=== PATIENT | female | born 1985 | race Caucasian/White ===

== ENCOUNTER 2016-12-08 00:03 | Emergency (ER) | payer MEDICARE, MEDICAID ==
[~2016-12-08] VITALS: Ht 149.9 cm; Wt 49.0 kg
[~2016-12-08 00:03] MED LIST: DOXY40CP IJ; OXYC-302 PO; PRED5TAB PO; VENL37.57 PO
[2016-12-08] MEDS ORDERED: PHENAZOPYRIDINE 200 MG TABLET PO ONE (00:30)
[2016-12-08] MEDS ORDERED: PHENAZOPYRIDINE 200 MG TABLET ONE (00:32)
[2016-12-08 01:21] LABS: HCG UR OBC PASS
[2016-12-08 01:29] LABS: ICTOTEST NEGATIVE
[2016-12-08 01:49] VITALS: BP 102/72
== END 2016-12-08 01:51 | disposition home or self-care (01) ==
LOC: ED 01:20
DX: N30.00 Acute cystitis without hematuria (principal); J45.909 Unspecified asthma, uncomplicated; Z90.49 Acquired absence of other specified parts of digestive tract
CPT/HCPCS: 81001; 81025; 87086; 99284

== ENCOUNTER 2017-08-07 01:58 | Inpatient (IN) | payer MEDICARE, MEDICAID ==
[~2017-08-07] VITALS: Ht 149.9 cm; Wt 59.1 kg
[2017-08-07] MEDS ORDERED: FAMOTIDINE 20 MG/2 ML ONE (02:18)
[2017-08-07] MEDS ORDERED: ONDANSETRON 2MG/ML, 2ML ONE (02:27)
[2017-08-07] MEDS ORDERED: SODIUM CHLORIDE 0.9% 1,000ML IVBOLUS ONE ×2 (02:30→04:30)
[2017-08-07] MEDS ORDERED: ONDANSETRON 2MG/ML, 2ML IVPush ONE (02:30)
[2017-08-07 02:40] LABS: HEMATOCRIT 38.7 % (34.6-47.8); HEMOGLOBIN 12.6 g/dL (11.7-16.4); WHITE BLOOD COUNT 8.8 x10^3/uL (3.4-10)
[2017-08-07 02:51] LABS: ASPARTATE AMINO TRANSFERASE 21 U/L (15-37); BLOOD UREA NITROGEN 7 mg/dL (7-18)
[2017-08-07] MEDS ORDERED: OMNIPAQUE 350 MG/ML, 100ML BOTTLE ONE (03:35)
[2017-08-07 04:54] LABS: DAU SCREEN DISCLAIMER
[2017-08-07] MEDS ORDERED: PROMETHAZINE 25 MG/ML, 1ML ONE (04:59)
[2017-08-07] MEDS ORDERED: PROMETHAZINE 25 MG/ML, 1ML IM ONE (05:00)
[2017-08-07] MEDS ORDERED: LORazepam 2 MG/ML, 1ML IVPush ONE (05:30)
[2017-08-07] MEDS ORDERED: SODIUM CHLORIDE 0.9% 1,000 ML IV SCH (08:04)
[2017-08-07] MEDS ORDERED: TEMAZEPAM 15 MG CAPSULE PO PRN (08:30)
[2017-08-07] MEDS ORDERED: ONDANSETRON 2MG/ML, 2ML IVPush PRN (08:30)
[2017-08-07] MEDS ORDERED: ENOXAPARIN 40 MG/0.4 ML SQ SCH (08:30)
[2017-08-07] MEDS ORDERED: LORazepam 2 MG/ML, 1ML IVPush PRN (08:30)
[2017-08-07 08:42] VITALS: BP 140/43
[2017-08-07 13:36] VITALS: BP 122/74
[2017-08-07 13:40] VITALS: BP 168/94
[2017-08-07 14:20] VITALS: BP 108/66
[2017-08-07] MEDS ORDERED: IBUPROFEN 200 MG TABLET PO PRN (18:00)
[2017-08-07 18:15] VITALS: BP 100/64
== END 2017-08-07 18:31 | disposition home or self-care (01) | DRG 392 ==
LOC: ED 02:35 → EDIP 06:19 → 4NOR 07:00
PROVIDERS: ADMIT Internal Medicine; ATTEND Internal Medicine
DX: A09 Infectious gastroenteritis and colitis, unspecified (principal); A08.4 Viral intestinal infection, unspecified; E86.0 Dehydration; R00.0 Tachycardia, unspecified; J45.909 Unspecified asthma, uncomplicated; M08.00 Unspecified juvenile rheumatoid arthritis of unspecified site; Z53.21 Procedure and treatment not carried out due to patient leaving prior to being seen by health care provider; Z90.49 Acquired absence of other specified parts of digestive tract; Z88.6 Allergy status to analgesic agent; Z88.1 Allergy status to other antibiotic agents; Z88.0 Allergy status to penicillin; Z88.2 Allergy status to sulfonamides
CPT/HCPCS: 36415; 74177; 80053; 80307; 81001; 83690; 84703; 85025; 87086; 87324; 89055; 93005; 96361; 96372; 96374; J1650; J2405; J2550; Q9967; G0479; J7030

== ENCOUNTER 2017-08-23 19:41 | Emergency (ER) | payer MEDICAID, MEDICARE ==
[~2017-08-23] VITALS: Ht 149.9 cm; Wt 60.0 kg
[2017-08-23] MEDS ORDERED: SODIUM CHLORIDE 0.9% 1,000ML IVBOLUS ONE (20:30)
[2017-08-23] MEDS ORDERED: ONDANSETRON 2MG/ML, 2ML IVPush ONE (20:30)
[2017-08-23] MEDS ORDERED: SODIUM CHLORIDE FLUSH 10ML SYR IVF ONE (20:30)
[2017-08-23 20:42] LABS: HEMATOCRIT 40.6 % (34.6-47.8); HEMOGLOBIN 13.3 g/dL (11.7-16.4); WHITE BLOOD COUNT 6.5 x10^3/uL (3.4-10)
[2017-08-23 20:54] LABS: BLOOD UREA NITROGEN 7 mg/dL (7-18)
[2017-08-23 20:59] LABS: ASPARTATE AMINO TRANSFERASE 13 U/L (15-37)
[2017-08-23] MEDS ORDERED: LORazepam 2 MG/ML, 1ML IM ONE (23:00)
[2017-08-23 23:08] VITALS: BP 122/72
== END 2017-08-23 23:10 | disposition home or self-care (01) ==
LOC: ED 20:45
DX: A09 Infectious gastroenteritis and colitis, unspecified (principal); N30.00 Acute cystitis without hematuria; K62.89 Other specified diseases of anus and rectum; K62.5 Hemorrhage of anus and rectum; Z90.49 Acquired absence of other specified parts of digestive tract
CPT/HCPCS: 36415; 80053; 81001; 83690; 84703; 85025; 87086; 99284

== ENCOUNTER 2017-12-16 20:21 | Emergency (ER) | payer MEDICARE, MEDICAID ==
[~2017-12-16] VITALS: Ht 149.9 cm; Wt 59.0 kg
[2017-12-16 20:28] VITALS: BP 114/76
[2017-12-16] MEDS ORDERED: MULT-6 PO (20:32)
[2017-12-16] MEDS ORDERED: CALC200T3 PO (20:43)
[2017-12-16] MEDS ORDERED: CHOL2000 PO (20:43)
[2017-12-16] MEDS ORDERED: PSYL0.528 PO (20:44)
[2017-12-16] MEDS ORDERED: IBUP200C5 PO (20:45)
[2017-12-16] MEDS ORDERED: MULT-224 PO (20:45)
[2017-12-16] MEDS ORDERED: OXYcodone/APAP 5/325MG TABLET ONE (21:54)
[2017-12-16] MEDS ORDERED: IBUPROFEN 200 MG TABLET ONE (21:54)
[2017-12-16] MEDS ORDERED: IBUPROFEN 200 MG TABLET PO ONE (22:00)
[2017-12-16] MEDS ORDERED: OXYcodone/APAP 5/325MG TABLET PO ONE (22:00)
== END 2017-12-16 22:08 | disposition home or self-care (01) ==
LOC: ED 21:40
DX: S52.124A Nondisplaced fracture of head of right radius, initial encounter for closed fracture (principal); Z88.0 Allergy status to penicillin; Z88.2 Allergy status to sulfonamides; Z88.8 Allergy status to other drugs, medicaments and biological substances; W18.49XA Other slipping, tripping and stumbling without falling, initial encounter; Y93.89 Activity, other specified; Y92.009 Unspecified place in unspecified non-institutional (private) residence as the place of occurrence of the external cause; Y99.9 Unspecified external cause status
CPT/HCPCS: 99284

== ENCOUNTER 2018-02-18 23:28 | Emergency (ER) | payer MEDICARE, MEDICAID ==
[~2018-02-18] VITALS: Ht 149.9 cm; Wt 56.3 kg
[~2018-02-18 23:28] MED LIST changes: +CALC200T3 PO; +CHOL2000 PO; +IBUP200C5 PO; +MULT-224 PO; +MULT-6 PO; +PSYL0.528 PO
[2018-02-18 23:29] VITALS: BP 117/77
== END 2018-02-19 00:06 | disposition home or self-care (01) ==
LOC: ED 23:59
DX: R21 Rash and other nonspecific skin eruption (principal); M08.00 Unspecified juvenile rheumatoid arthritis of unspecified site
CPT/HCPCS: 99283

== ENCOUNTER 2018-03-04 21:42 | Emergency (ER) | payer MEDICARE, MEDICAID ==
[~2018-03-04] VITALS: Ht 149.9 cm; Wt 53.2 kg
[2018-03-04 21:44] VITALS: BP 115/82
[2018-03-04 22:18] LABS: BASOPHILS # (AUTO) 0.05 x10^3/uL (0-0.1); BASOPHILS % (AUTO) 1 % (0-1); EOSINOPHILS # (AUTO) 0.43 x10^3/uL (0-0.4); EOSINOPHILS % (AUTO) 6 % (1-7); LYMPHOCYTES # (AUTO) 2.58 x10^3/uL (1-3.4); LYMPHOCYTES % (AUTO) 35 % (22-44); MD NO; MEAN CORPUSCULAR HEMOGLOBIN 26.2 pg (27.0-34.8); MEAN CORPUSCULAR HGB CONC 32.7 g/dL (32.4-35.8); MEAN CORPUSCULAR VOLUME 80.3 fL (80-100); MEAN PLATELET VOLUME 9.2 fL (7.4-10.4); MONOCYTES # (AUTO) 0.82 x10^3/uL (0.2-0.8); MONOCYTES % (AUTO) 11 % (2-9); NEUTROPHILS # (AUTO) 3.47 x10^3/uL (1.8-6.8); NEUTROPHILS % (AUTO) 47 % (42-75); PLATELET COUNT 314 x10^3/uL (130-400); RED CELL DISTRIBUTION WIDTH 17.9 % (9.6-15.2)
[2018-03-04 22:26] LABS: INTERNATIONAL NORMALIZED RATIO 0.97 (0.93-1.1)
[2018-03-04 22:30] LABS: ALANINE AMINOTRANSFERASE 17 U/L (12-78); ALBUMIN 3.5 g/dL (3.4-5.0); ANION GAP 7 mmol/L (5-15); CALCIUM 8.9 mg/dL (8.5-10.1); CHLORIDE 109 mmol/L (98-107)
[2018-03-04 22:35] LABS: ALKALINE PHOSPHATASE 116 U/L (45-117); BILIRUBIN,TOTAL 0.2 mg/dL (0.2-1.0)
== END 2018-03-04 23:01 | disposition home or self-care (01) ==
LOC: ED 22:45
DX: N93.8 Other specified abnormal uterine and vaginal bleeding (principal); J45.909 Unspecified asthma, uncomplicated; Z90.49 Acquired absence of other specified parts of digestive tract; Z88.0 Allergy status to penicillin; Z88.2 Allergy status to sulfonamides; Z88.8 Allergy status to other drugs, medicaments and biological substances
CPT/HCPCS: 36415; 80053; 84703; 85025; 85610; 85730; 99284

== ENCOUNTER 2018-04-01 10:40 | Emergency (ER) | payer MEDICARE, MEDICAID ==
[~2018-04-01] VITALS: Ht 149.9 cm; Wt 53.0 kg
[2018-04-01 10:42] VITALS: BP 100/68
[2018-04-01] MEDS ORDERED: IBUPROFEN 200 MG TABLET ONE (10:54)
[2018-04-01] MEDS ORDERED: IBUPROFEN 200 MG TABLET PO ONE (11:00)
[2018-04-01] MEDS ORDERED: PREN1TAB60 PO (11:03)
[2018-04-01] MEDS ORDERED: ANTIDEPRESSANT (11:03)
== END 2018-04-01 11:36 | disposition home or self-care (01) ==
LOC: ED 11:30
DX: H60.502 Unspecified acute noninfective otitis externa, left ear (principal); H69.82 Other specified disorders of Eustachian tube, left ear; J45.909 Unspecified asthma, uncomplicated
CPT/HCPCS: 99283